=== PATIENT | female | born 1980 | race Caucasian/White ===

== ENCOUNTER 2017-02-27 14:52 | Outpatient (CLI) | payer OTHER ==
--- NOTE | 2017-02-27 19:06 | ULT ---
PELVIC ULTRASOUND 02/27/17 HISTORY: Dysmenorrhea. FINDINGS: Multiple transabdominal and endovaginal sonographic images of the pelvis are obtained. The uterus demonstrates a normal sonographic appearance with homogeneous echotexture measuring 8.1 cm x 4.3 cm x 4.2 cm. The endometrial stripe measures 1 cm which is normal in thickness for the patient 's age. No fluid or fluid collection is seen in the endometrial canal. The ovaries demonstrate a normal sonographic appearance bilaterally with the right ovary measuring 2. 4 cm x 1.7 cm x 1.5 cm and the left ovary measuring 2.1 cm x 1.8 cm x 1.2 cm. Doppler evaluation of each ovary with spectral analysis and color flow evaluation demonstrates arteri al flow. No free fluid is seen in the cul-de-sac. IMPRESSION: Normal appearing uterus and bilateral ovaries. POS: LEXY
== END 2017-02-27 14:53 | disposition home or self-care (01) ==
LOC: SCSULT 14:52
PROVIDERS: ATTEND Family Medicine
DX: N94.6 Dysmenorrhea, unspecified (principal)
CPT/HCPCS: 76856

== ENCOUNTER 2018-09-17 13:47 | Outpatient (CLI) | payer OTHER ==
--- NOTE | 2018-09-17 14:40 | MMO ---
Bilateral MAMMO Bilat Diag [facility]. CLINICAL HISTORY: Patient is 37 years old and is seen for diagnostic exam and palpable abnormality in the right breast. The patient has no family history of breast cancer. The patient has no personal history of cancer. VIEWS: The views performed were: bilateral craniocaudal with tomosynthesis; bilateral mediolateral oblique with tomosynthesis; and bilateral mediolateral with tomosynthesis. FILMS COMPARED: The present examination has been compared to a prior imaging study performed at [facility] on 09/17/2018. MAMMOGRAM FINDINGS: There are scattered fibroglandular densities. There are no suspicious masses, suspicious calcifications, or new areas of architectural distortion. There are no mammographic or sonographic abnormalities in the area of palpable concern. The patient is referred back to her clinician. Negative imaging findings should not preclude biopsy if clinical findings are suspicious. IMPRESSION: THERE ARE NO MAMMOGRAPHIC ABNORMALITIES IN THE AREA OF PALPABLE CONCERN. THE PATIENT IS REFERRED BACK TO HER CLINICIAN. NEGATIVE IMAGING FINDINGS SHOULD NOT PRECLUDE BIOPSY IF CLINICAL FINDINGS ARE SUSPICIOUS. THE RESULTS OF THIS EXAM WERE SENT TO THE PATIENT. ACR BI-RADS Category 1 - Negative MAMMOGRAPHY NOTE: 1. A negative mammogram report should not delay a biopsy if a dominant of clinically suspicious mass is present. 2. Approximately 10% to 15% of breast cancers are not detected by mammography. 3. Adenosis and dense breasts may obscure an underlying neoplasm.
--- NOTE | 2018-09-17 15:31 | ULT ---
LIMITED RIGHT BREAST ULTRASOUND: 09/17/18 PROVIDED CLINICAL HISTORY: Right breast palpable abnormality. FINDINGS: Limited sonographic interrogation was performed of the right breast in the region of palpable concern . The sonographic appearance of the breast parenchyma in this region is normal. IMPRESSION: BIRADS 1: Negative Routine annual screening mammography (for women over age 40) POS: OFF
== END 2018-09-17 13:48 | disposition home or self-care (01) ==
LOC: BICMAMMO 13:47
PROVIDERS: ATTEND Family Medicine
DX: N63.10 Unspecified lump in the right breast, unspecified quadrant (principal)
CPT/HCPCS: 77066; G0279

== ENCOUNTER 2019-06-09 09:46 | Outpatient (CLI) | payer BC, OTHER ==
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
== END 2019-06-09 09:47 | disposition home or self-care (01) ==
LOC: SCSRAD 09:46
PROVIDERS: ATTEND Neurological Surgery
DX: M48.56XA Collapsed vertebra, not elsewhere classified, lumbar region, initial encounter for fracture (principal); S32.011A Stable burst fracture of first lumbar vertebra, initial encounter for closed fracture
CPT/HCPCS: 36415; 72100; 82306

== ENCOUNTER 2024-10-28 10:06 | Outpatient (CLI) | payer BC | END 2024-10-28 10:07 | disposition home or self-care (01) | LOC: BICMAMMO 10:06 | PROVIDERS: ATTEND Family Medicine | DX: Z12.31 Encounter for screening mammogram for malignant neoplasm of breast (principal) | CPT/HCPCS: 77063; 77067 ==